=== PATIENT | female | born 1975 | race Caucasian/White ===

== ENCOUNTER → 2018-05-31 08:22 | Outpatient (CLI) | payer OTHER, SELFPAY ==
[2018-05-31 08:26] LABS: Microscopic, Urine URINE MICROSCOPIC (MICROSCOPIC)
[2018-05-31 08:45] LABS: Appearance,Urine CLEAR (Clear); Bilirubin,Urine Negative (Negative); Blood, Urine 3+ (Negative); Color,Urine YELLOW (Yellow); Glucose,Urine (UA) Negative (Negative); Ketones,Urine Negative (Negative); Leukocyte Esterase,Urine 1+ (Negative); Nitrate,Urine Negative (Negative); PH,Urine 7.5 (5.0-8.5); Protein,Urine Negative (Negative); Urobilinogen,Urine 0.2 EU/dl (0.2)
[2018-05-31 09:05] LABS: Bacteria,Urine 2+ /lpf; RBC,Urine Occasional #/hpf (0-3); Squamous Epithelial Cell,Urine 20-50 #/hpf (0-5)
[2018-05-31 09:35] LABS: Alanine Aminotransferase 28 U/L (12-78); Albumin Level 3.6 gm/dL (3.4-5.0); Albumin/Globulin Ratio 1.2 (1.1-1.8); Alkaline Phosphatase 50 U/L (46-116); Anion Gap 14.2 mEq/L (5-15); Aspartate Amino Transferase 11 U/L (15-37); Bilirubin,Total 0.8 mg/dL (0.2-1.0); Blood Urea Nitrogen 7 mg/dL (7-18); Calcium 8.5 mg/dL (8.5-10.1); Carbon Dioxide 26 mmol/L (21.0-32.0); Chloride 106 mmol/L (98-107); Chol/HDL Ratio 3.2 (1-3.5); Cholesterol 187 mg/dL (140-200); Creatinine,Serum 0.63 mg/dL (0.55-1.02); Estimated Glomerular Filt Rate 104 ml/min (>60); GFR (African American) 126 ML/MIN (>60); Globulin 3.1 gm/dl (1.3-3.2); Glucose 96 mg/dL (74-106); HDL Cholesterol 58 mg/dL (29-89); LDL Cholesterol 109 mg/dL (0-130); Potassium 4.2 mmoL/L (3.5-5.1); Sodium 142 mmol/L (136-145); Total Protein,Serum 6.7 gm/dL (6.4-8.2); Triglycerides 102 mg/dL (30-200); Uric Acid 4.2 mg/dL (2.6-7.2); VLDL Cholesterol 20 mg/dL (0-40)
[2018-06-01 09:21] LABS: Creatinine, Urine 62.4 mg/dL (Not Estab.); Microalbumin, Urine 17.7 ug/mL (Not Estab.)
== END ==
PROVIDERS: Visit Provider Family Medicine
DX: E78.00 Pure hypercholesterolemia, unspecified (principal); I10 Essential (primary) hypertension
CPT/HCPCS: 36415; 80053; 80061; 81001; 82043; 82570; 84550; 87086; 93005

== ENCOUNTER → 2018-06-06 10:10 | Outpatient (CLI) | payer OTHER, SELFPAY ==
[2018-06-06 10:13] LABS: Microscopic, Urine URINE MICROSCOPIC (MICROSCOPIC)
[2018-06-06 10:54] LABS: Appearance,Urine CLEAR (Clear); Bilirubin,Urine Negative (Negative); Blood, Urine Negative (Negative); Color,Urine STRAW (Yellow); Glucose,Urine (UA) Negative (Negative); Ketones,Urine Negative (Negative); Leukocyte Esterase,Urine Negative (Negative); Nitrate,Urine Negative (Negative); PH,Urine 6.5 (5.0-8.5); Protein,Urine Negative (Negative); Specific Gravity, Urine <= 1.005 (1.005-1.030); Urobilinogen,Urine 0.2 EU/dl (0.2)
[2018-06-06 11:23] LABS: Bacteria,Urine 1+ /lpf
== END ==
PROVIDERS: Visit Provider Family Medicine
DX: R31.9 Hematuria, unspecified (principal)
CPT/HCPCS: 81001; 87086

== ENCOUNTER → 2019-03-06 08:49 | Outpatient (CLI) | payer OTHER, SELFPAY ==
--- NOTE | 2019-03-06 08:55 | XR_ITS ---
XR knee RT 2V HISTORY: ITS.REASON: RT KNEE PAIN ORDERING PHYSICIAN: Oswald Boucher MD PATIENT AGE: 43 years COMPARISON: None FINDINGS There are mild osteoarthritic changes of all 3 compartments. No fracture or dislocation. No lytic or blastic change. IMPRESSION: Mild osteoarthritis
== END ==
PROVIDERS: PCP Family Medicine; Visit Provider Anesthesiology
DX: M25.561 Pain in right knee (principal)
CPT/HCPCS: 73560

== ENCOUNTER → 2019-07-24 10:03 | Outpatient (CLI) | payer OTHER, SELFPAY ==
--- NOTE | 2019-07-24 10:04 | MM_ITS ---
PROCEDURE: MM DIG SCREENING MAMM BI W/CAD Patient Age:43Y CLINICAL INDICATION: routine screening mammogram 43-year-old. No hormones. No new complaints. Noncontributory family history COMPARISON: Baseline mammogram with No exams were available for comparison TECHNIQUE: Standard CC and MLO images were obtained. R2 CAD reviewed. FINDINGS: Baseline no previous studies for comparison . Lower density breast with utnd-bi-iykmjvux fibroglandular elements most evident towards upper-outer quadrant. No dominant or suspicious mass. No suspicious calcifications. CAD computer review highlights no significant areas of concern either. Bilateral follow-up 1 year recommended IMPRESSION: Baseline mammogram. No areas of concern Bilateral follow-up 1 year recommended BI-RAD Category: 1 Negative FOLLOW-UP: 1YR 1 Year Follow-up (A letter has been sent to the patient regarding results of the study.) Dictated by: Med Maldonado MD 07/25/2019 08:54 Electronically signed by Med Maldonado MD in [place] 07/25/2019 08:54
== END ==
PROVIDERS: PCP Family Medicine; Visit Provider Nurse Practitioner Obstetrics & Gynecology
DX: Z12.31 Encounter for screening mammogram for malignant neoplasm of breast (principal)
CPT/HCPCS: 77067

== ENCOUNTER → 2019-09-01 09:39 | Outpatient (POV) | payer OTHER, SELFPAY | PROVIDERS: PCP Family Medicine; Visit Provider Nurse Practitioner Family | DX: Z00.00 Encounter for general adult medical examination without abnormal findings (principal) ==

== ENCOUNTER → 2020-05-12 08:15 | Outpatient (CLI) | payer OTHER, SELFPAY ==
[2020-05-12 12:56] LABS: Alanine Aminotransferase 17 U/L (12-78); Albumin/Globulin Ratio 1.4 (1.1-1.8); Alkaline Phosphatase 52 U/L (38-126); Anion Gap 11.5 mEq/L (5-15); Aspartate Amino Transferase 20 U/L (14-36); Bilirubin,Total 0.7 mg/dl (0.2-1.3); Blood Urea Nitrogen 11 mg/dl (7-17); Calcium 9.3 mg/dl (8.4-10.2); Carbon Dioxide 29 mmol/L (22.0-30.0); Chloride 103 mmol/L (98-107); Chol/HDL Ratio 3.4 (1-3.5); Cholesterol 232 mg/dl (140-200); Estimated Glomerular Filt Rate 109 ml/min (>60); GFR (African American) 132 ML/MIN (>60); Globulin 2.8 g/dL (1.3-3.2); Glucose 98 mg/dl (74-100); HDL Cholesterol 69 mg/dl (40-60); Potassium 4.5 mmoL/L (3.5-5.1); Sodium 139 mmol/L (136-145); Total Protein,Serum 6.8 g/dl (6.3-8.2); Triglycerides 112 mg/dl (30-150); VLDL Cholesterol 22 mg/dL (0-40)
[2020-05-12 13:08] LABS: Direct LDL Cholesterol 146.68 mg/dL (100-129)
[2020-05-12 13:29] LABS: Thyroid Stimulating Hormone 1.73 uIU/mL (0.465-4.68)
== END ==
PROVIDERS: Visit Provider Physician Assistant
DX: I10 Essential (primary) hypertension (principal); E78.00 Pure hypercholesterolemia, unspecified; Z13.29 Encounter for screening for other suspected endocrine disorder
CPT/HCPCS: 36415; 80053; 80061; 84443

== ENCOUNTER 2020-07-23 23:01 | Emergency (ER) | payer OTHER, SELFPAY ==
[2020-07-23 23:07] VITALS: BP 169/100; PULSE 92; RESP 22; O2SAT 100; BMI 37.1; BMI 39.4
--- NOTE | 2020-07-23 23:08 | XR_ITS ---
PROCEDURE: XR SHOULDER LT MIN 2V Referring Doctor: Rm Bonds Patient Age:44Y CLINICAL INDICATION: injury fall with injury at left shoulder. Left shoulder pain. COMPARISON: CR SHOU3L [id number] VIEWS from 06/14/2017 CR SHOU1L [id number] VIEW-LT from 06/14/2017 FINDINGS: Anterior dislocation left shoulder appears to be subcoracoid in character. No fracture evident. Humeral head and neck seem to be intact with upper normal widith AC joint Bones well mineralized. Upper left ribs and clavicle are intact with no fracture otherwise scapula intact IMPRESSION: Anterior dislocation left shoulder; with no fracture evident. Subcoracoid anterior dislocation Dictated by: Med Maldonado MD 07/24/2020 13:44 Med Maldonado MD in [place] 07/24/2020 13:44
[2020-07-23 23:23] VITALS: BP 154/79; PULSE 85; RESP 16; O2SAT 98
[2020-07-23 23:26] VITALS: BP 121/78; PULSE 82; RESP 16; O2SAT 96
[2020-07-23 23:34] VITALS: BP 121/78; PULSE 87; RESP 16; O2SAT 95
--- NOTE | 2020-07-23 23:35 | XR_ITS ---
PROCEDURE: XR SHOULDER LT 1V Referring Doctor: Rm Bonds Patient Age:44Y CLINICAL INDICATION: post reduction left shoulder dislocation COMPARISON: CR SHOU3L [id number] VIEWS from 06/14/2017 CR SHOU1L [id number] VIEW-LT from 06/14/2017 CR XR SHOULDER LT MIN 2V from 07/23/2020 FINDINGS: Single post reduction portable image left shoulder reveals that on this single view the humeral head appears to been reduced and appears to articulate with the glenoid on this single view. Two views would provide highest degree of certainty but on this single view glenohumeral relationships appear to be appropriate and reestablished but AC joint appears intact upper normal with. Humeral head and neck unremarkable on this limited single view. No fracture evident on this view the On this limited images bibasilar atelectasis with low lung volumes.. packaging engineer leads in place. Nasal O2 in place IMPRESSION: Single post reduction image of supports the dislocation was reduced . On this single view the glenohumeral relationships would appear to have been appear reestablished Dictated by: Med Maldonado MD 07/24/2020 13:48 Med Maldonado MD in [place] 07/24/2020 13:48
--- NOTE | 2020-07-23 23:39 | HMH.EDUPEXT ---
ED Disposition Clinical Impression: Dislocation of shoulder region Qualifiers: Encounter type: initial encounter Laterality: left Qualified Code(s): S43.005A - Unspecified dislocation of left shoulder joint, initial encounter Disposition: Home, Self-Care Condition on Discharge: Good Instructions: DI for Shoulder Dislocation Additional Instructions: ice and rom as harmoyn and callpcp and ortho Referrals: Neri Pellteier MD [Primary Care Provider] - - Critical Care Critical Care Time: No Attestation: On 07/23/20, the high probability of a clinically significant, sudden or life threatening deterioration of the following system(s) required my full and direct attention, intervention and personal management. The time I documented below is in addition to time spent performing reported procedures but includes the following listed in this critical care notation. Medical Decision Making - Medical Records Medical records reviewed: Yes: I reviewed the patient's medical records. - Khanh Inquiry Pt receiving controlled substance: No Vital Signs: 07/23/20 23:07 Pulse Rate [Right Brachial] 92 H Respiratory Rate 22 Blood Pressure [Right Arm] 169/100 H Blood Pressure Mean [Right Arm] 123 Blood Pressure Source [Right Arm] Automatic Cuff Blood Pressure Position [Right Arm] Sitting 02 Sat by Pulse Oximetry 100 Oxygen Delivery Method Room Air Orders (Tests/Meds): ED MEDICATIONS Discontinued Medications Generic Name Dose Route Start Last Admin Trade Name Jasonq PRN Reason Stop Dose Admin Fentanyl Citrate 50 mcg 07/23/20 23:22 Fentanyl 250mcg/5ml Vial IV 07/23/20 23:23 ONCE ONE Fentanyl Citrate 25 mcg 07/23/20 23:25 Fentanyl 250mcg/5ml Vial IV 07/23/20 23:26 ONCE ONE Fentanyl Citrate 25 mcg 07/23/20 23:26 Fentanyl 250mcg/5ml Vial IV 07/23/20 23:27 ONCE ONE Midazolam HCl 2 mg 07/23/20 23:23 Midazolam 2mg/2ml Vial IV 07/23/20 23:24 ONCE ONE ORDERS Category Date Time Status XR shoulder LT 1V Stat Exams 07/23/20 23:35 Taken XR shoulder LT min 2V Stat Exams 07/23/20 23:08 Taken - Radiology Data #1 Image(s): Shoulder Image Reviewed: Yes I reviewed the patient's radiology image Preliminary Findings: Abnormal (dislocation ) Upper Extremity HPI - General Chief Complaint: Extremity Injury, Upper Stated Complaint: AM [id number] l ARM Time Seen by Provider: 07/23/20 23:15 Mode of Arrival: Family Vehicle Source of Information: Patient, Spouse, Medical Record Limitations: No Limitations Description of Symptoms (Recalled from ER Triage Doc. by RN): possible shoulder dislocation from a fall earlier this evening; no other injury - History of Present Illness HPI narrative: fall with lt shoulder injury- hx of dislocation MD complaint: injury to: left, shoulder Onset (ago): hour(s) Other Extremity Injury: Left: shoulder Other injuries: none Handedness: left Place: home Severity: moderate Context: fall Associated symptoms: denies other symptoms - Related Data Home Medications Medication Instructions Recorded Confirmed duloxetine 60 mg capsule,delayed PO #90 cap 07/03/19 07/03/19 release irbesartan 150 mg tablet PO #90 tab 07/03/19 07/03/19 ropinirole 0.25 mg tablet PO #90 tab 07/03/19 07/03/19 Allergies Allergy/AdvReac Type Severity Reaction Status Date / Time No Known Drug Allergies Allergy Unknown Verified 07/03/19 09:05 [NO KNOWN DRUG ALLERGIES] [facility] History - Hepatitis A Screen Drug use history?: No High risk sexual behaviors?: No History of sexually transmitted infection?: No Currently employed?: No Childcare worker?: No Do you have indoor plumbing?: Yes Do you have electricity?: Yes Attestation statement:: This patient has been screened for Hepatitis A risk factors. I have reviewed the patient's past medical history: Yes Medical History: Reports:: Depression, Hypertension Other Medical Histo
[2020-07-23 23:48] VITALS: BP 120/78; PULSE 79; RESP 16; TEMP 36.8; O2SAT 98
== END 2020-07-23 23:53 | disposition home or self-care (01) ==
PROVIDERS: Emergency Provider Emergency Medicine; PCP Family Medicine
DX: S43.005A Unspecified dislocation of left shoulder joint, initial encounter (principal); W01.0XXA Fall on same level from slipping, tripping and stumbling without subsequent striking against object, initial encounter; Y92.019 Unspecified place in single-family (private) house as the place of occurrence of the external cause; F33.1 Major depressive disorder, recurrent, moderate; I10 Essential (primary) hypertension; Z79.899 Other long term (current) drug therapy
CPT/HCPCS: 23650; 73020; 73030; 96365; 96375; 99284

== ENCOUNTER → 2021-01-21 07:38 | Outpatient (CLI) | payer OTHER, SELFPAY ==
[2021-01-21 07:55] LABS: Basophils % 0.7 % (0.1-2.0); Eosinophils # 0.1 K/mm3 (0.0-0.4); Eosinophils % 1.2 % (0.1-12.0); Hematocrit 36.4 % (37.0-47.0); Hemoglobin 11.7 g/dL (12.2-16.2); Lymphocytes # 1.6 K/mm3 (0.7-4.5); Lymphocytes % 28.7 % (10-50); Mean Corpuscular HGB Conc 32.2 g/dL (31.8-35.4); Mean Corpuscular Hemoglobin 26.3 pg (27.0-31.2); Mean Corpuscular Volume 81.7 fl (81-99); Mean Platelet Volume 7.8 fl (7.4-10.4); Monocytes # 0.3 K/mm3 (0.1-1.0); Monocytes % 4.5 % (1.7-9.3); Neutrophils # 3.5 K/mm3 (1.8-7.8); Neutrophils % 64.8 % (37.0-80.0); Platelet Count 364 K/mm3 (142-424); Red Blood Count 4.45 M/mm3 (4.20-5.40); Red Cell Distribution Width 14.8 % (11.5-17.5); White Blood Count 5.5 K/mm3 (4.8-10.8)
[2021-01-21 08:38] LABS: Alanine Aminotransferase 14 U/L (12-78); Albumin Level 4.1 g/dl (3.5-5.0); Albumin/Globulin Ratio 1.5 (1.1-1.8); Alkaline Phosphatase 58 U/L (38-126); Anion Gap 12.4 mEq/L (5-15); Aspartate Amino Transferase 19 U/L (14-36); Bilirubin,Total 0.9 mg/dl (0.2-1.3); Blood Urea Nitrogen 13 mg/dl (7-17); Calcium 9.3 mg/dl (8.4-10.2); Carbon Dioxide 25 mmol/L (22.0-30.0); Chloride 106 mmol/L (98-107); Chol/HDL Ratio 3.8 (1-3.5); Cholesterol 198 mg/dl (140-200); Estimated Glomerular Filt Rate 91 ml/min (>60); GFR (African American) 110 ML/MIN (>60); Globulin 2.8 g/dL (1.3-3.2); Glucose 86 mg/dl (74-100); HDL Cholesterol 52 mg/dl (40-60); Potassium 4.4 mmoL/L (3.5-5.1); Sodium 139 mmol/L (136-145); Total Protein,Serum 6.9 g/dl (6.3-8.2); Triglycerides 79 mg/dl (30-150); VLDL Cholesterol 16 mg/dL (0-40)
[2021-01-21 08:49] LABS: Direct LDL Cholesterol 126.57 mg/dL (100-129)
[2021-01-21 09:09] LABS: Thyroid Stimulating Hormone 1.26 uIU/mL (0.465-4.68)
[2021-01-21 09:52] LABS: Folate 5.51 ng/mL; Vitamin B12 > 1000 pg/mL (239-931)
[2021-01-21 09:58] LABS: Iron 49 ug/dL (37-170)
[2021-01-28 06:16] LABS: 1,25 Dihydroxy Vitamin D 39 pg/mL (.); 1,25-Dihydroxy, Vitamin D-2 <10 pg/mL (.); 1,25-Dihydroxy, Vitamin D-3 36 pg/mL (.)
== END ==
PROVIDERS: Visit Provider Nurse Practitioner Family
DX: E78.5 Hyperlipidemia, unspecified (principal); E55.9 Vitamin D deficiency, unspecified; L65.9 Nonscarring hair loss, unspecified
CPT/HCPCS: 36415; 80053; 80061; 82607; 82652; 82746; 83540; 84443; 85025

== ENCOUNTER → 2021-06-09 08:58 | Outpatient (CLI) | payer OTHER, SELFPAY ==
[2021-06-09 08:59] LABS: Microscopic, Urine URINE MICROSCOPIC (MICROSCOPIC)
[2021-06-09 09:19] LABS: Appearance,Urine CLEAR (Clear); Bilirubin,Urine Negative (Negative); Blood, Urine TRACE-I (Negative); Color,Urine YELLOW (Yellow); Glucose,Urine (UA) Negative (Negative); Ketones,Urine Negative (Negative); Leukocyte Esterase,Urine 1+ (Negative); Nitrate,Urine Negative (Negative); Protein,Urine Negative (Negative); Urobilinogen,Urine 0.2 EU/dl (0.2)
[2021-06-09 09:27] LABS: Bacteria,Urine Trace /lpf
== END ==
PROVIDERS: Visit Provider Clinical Nurse Specialist Family Health
DX: R30.0 Dysuria (principal)
CPT/HCPCS: 81001; 87086

== ENCOUNTER → 2021-06-28 09:49 | Outpatient (POV) | payer OTHER, SELFPAY | PROVIDERS: Visit Provider Dermatology | DX: Z00.00 Encounter for general adult medical examination without abnormal findings (principal) ==

== ENCOUNTER → 2021-08-19 10:57 | Outpatient (CLI) | payer OTHER, SELFPAY ==
[2021-08-19 10:59] LABS: Microscopic, Urine URINE MICROSCOPIC (MICROSCOPIC)
[2021-08-19 11:30] LABS: Appearance,Urine CLEAR (Clear); Bilirubin,Urine Negative (Negative); Blood, Urine 3+ (Negative); Color,Urine YELLOW (Yellow); Glucose,Urine (UA) Negative (Negative); Ketones,Urine Negative (Negative); Leukocyte Esterase,Urine 1+ (Negative); Nitrate,Urine Negative (Negative); Protein,Urine Negative (Negative); Urobilinogen,Urine 0.2 EU/dl (0.2)
[2021-08-19 12:09] LABS: Bacteria,Urine 1+ /lpf
== END ==
PROVIDERS: Visit Provider Clinical Nurse Specialist Family Health
DX: N39.0 Urinary tract infection, site not specified (principal)
CPT/HCPCS: 81001; 87086

== ENCOUNTER → 2022-01-17 12:56 | Outpatient (CLI) | payer OTHER, SELFPAY | PROVIDERS: PCP Family Medicine; Visit Provider Student in an Organized Health Care Education/Training Program | DX: M25.561 Pain in right knee (principal) ==

== ENCOUNTER → 2022-02-01 08:00 | Outpatient (CLI) | payer OTHER, SELFPAY ==
--- NOTE | 2022-02-01 08:06 | MM_ITS ---
PROCEDURE INFORMATION: Exam: MG Bilateral Screening 3D Mammography Exam date and time: 02/01/2022 8:02 AM Age: 46 years old Clinical indication: Screening examination TECHNIQUE: Imaging protocol: Bilateral Screening tomosynthesis and 2D mammography including computer-aided detection (CAD) when performed. COMPARISON: MG MM DIG SCREENING MAMM BI W/CAD 07/24/2019 10:25 AM FINDINGS: MAMMOGRAPHY: Breast composition: There are scattered areas of fibroglandular density. Mass: None. Architectural distortion: No new or suspicious architectural distortion. Calcifications: No new or suspicious calcifications are present Asymmetric density: No new or suspicious asymmetric density is present Skin thickening: None. Axillary adenopathy: None. IMPRESSION: No mammographic evidence of malignancy. Recommend annual screening mammography unless otherwise clinically indicated. ASSESSMENT: BI-RADS category 1: Negative
== END ==
PROVIDERS: PCP Family Medicine; Visit Provider Physician Assistant
DX: Z12.31 Encounter for screening mammogram for malignant neoplasm of breast (principal)
CPT/HCPCS: 77063; 77067

== ENCOUNTER → 2022-10-17 09:08 | Outpatient (CLI) | payer OTHER, SELFPAY ==
[2022-10-17 09:28] LABS: Basophils # 0.1 K/mm3 (0-0.2); Basophils % 0.6 % (0.1-2.0); Eosinophils # 0.2 K/mm3 (0.0-0.4); Eosinophils % 1.4 % (0.1-12.0); Hematocrit 43.7 % (37.0-47.0); Hemoglobin 14.3 g/dL (12.2-16.2); Lymphocytes # 2.1 K/mm3 (0.7-4.5); Lymphocytes % 18.5 % (10-50); Mean Corpuscular HGB Conc 32.8 g/dL (31.8-35.4); Mean Corpuscular Hemoglobin 29.5 pg (27.0-31.2); Mean Platelet Volume 7.9 fl (7.4-10.4); Monocytes # 0.4 K/mm3 (0.1-1.0); Neutrophils # 8.8 K/mm3 (1.8-7.8); Neutrophils % 76.4 % (37.0-80.0); Platelet Count 406 K/mm3 (142-424); Red Blood Count 4.85 M/mm3 (4.20-5.40); Red Cell Distribution Width 13.1 % (11.5-17.5); White Blood Count 11.5 K/mm3 (4.8-10.8)
[2022-10-17 10:16] LABS: Chloride 102 mmol/L (98-107); Potassium 4.3 mmoL/L (3.5-5.1); Sodium 136 mmol/L (136-145)
[2022-10-17 10:18] LABS: Blood Urea Nitrogen 5 mg/dl (7-17); Estimated Glomerular Filt Rate 90 ml/min (>60); GFR (African American) 109 ML/MIN (>60)
[2022-10-17 10:19] LABS: Alanine Aminotransferase 22 U/L (12-78); Albumin Level 4.1 g/dl (3.5-5.0); Albumin/Globulin Ratio 1.6 (1.1-1.8); Alkaline Phosphatase 46 U/L (38-126); Anion Gap 13.3 mEq/L (5-15); Aspartate Amino Transferase 23 U/L (14-36); Bilirubin,Total 0.9 mg/dl (0.2-1.3); Calcium 9.1 mg/dl (8.4-10.2); Carbon Dioxide 25 mmol/L (22.0-30.0); Globulin 2.6 g/dL (1.3-3.2); Glucose 98 mg/dl (74-100); Total Protein,Serum 6.7 g/dl (6.3-8.2)
[2022-10-17 10:39] LABS: HCG,Quantitative < 2 mIU/ml (0-5.42)
== END ==
PROVIDERS: PCP Family Medicine; Visit Provider Nurse Practitioner Obstetrics & Gynecology
DX: Z87.42 Personal history of other diseases of the female genital tract (principal); N92.0 Excessive and frequent menstruation with regular cycle
CPT/HCPCS: 36415; 80053; 84702; 85025

== ENCOUNTER 2022-10-18 05:59 | Day surgery (SDC) | payer OTHER, SELFPAY ==
[2022-10-12 11:19] VITALS: BMI 34.9
[2022-10-18] VITALS (11 sets, daily range): BP systolic 106–154; BP diastolic 33–93; PULSE 55–90; RESP 16–18; TEMP 36.4–36.7; O2SAT 90–98
--- NOTE | 2022-10-18 07:44 | P.PN_ITS ---
[facility] Disclaimer: The information contained in this section may have been updated after the patient was seen, as this information can be updated by other users. Medical History History of gastroesophageal reflux (GERD) Hypertension Surgical History No significant past surgical history Family History Mother Diabetes Heart attack Stroke Hyperlipidemia Hypertension Social History Smoking Status: Never smoker alcohol intake: never substance use type: denies use current occupational status: employed Travel in the last 8 weeks: None [facility] Anesthesia Checklist Patient Identification Patient Identification: Arm Band Structural Data Admitted From: Home Planned Operative Procedure/s: Hysteroscopy, D&C, Novasure Ablation Consent for Planned Operative Procedure(s) Verified: Yes Verified Documents: Surgical Consent and History and Physical NPO Status Verified Time NPO: 00:00 Additional verifications Anesthesia Reactions: No Hx Blood Transfusions: No Blood Transfusion Reaction: No Airway Assessment C-Spine Mobility Assessed: Yes TMJ Mobility Assessed: Yes Dentition: Good Dentition Neurological Assessment Level of Consciousness: Awake and Alert Anesthesia Plan Anesthesia Risk discussed: Yes Anesthesia Plan: Verified ASA Class: II Anesthesia Type: General
--- NOTE | 2022-10-18 08:11 | EXP.ANES.I ---
[facility] Anesthesia Record Part I Anesthesia Record I Intake, IV Amount: 900 Estimated blood loss (mL): 100 Urine output (mL): 0 Blood Products used (#): none Blood Pressure: 154/93 SaO2: 92 Pulse Rate: 81 Respiratory Rate: 16 Temperature: 98 F Patient is:: Drowsy and Stable Stable to PACU at:: 08:05
--- NOTE | 2022-10-18 08:16 | EXP.OP.NOTE ---
Date of procedure: 10/18/22 Pre-op Diagnosis:: Menorrhagia Post-op Diagnosis:: Menorrhagia Procedure performed:: Hysteroscopy, dilation and curettage, NovaSure ablation Surgeon:: Darin Best MD BACTERIOLOGY TECHNICIAN:: Cristobal Dela Cruz Anesthesia: LMA Estimated blood loss (mL): 100 Clinical Note:: She is a 46-year-old lady who complains of extremely heavy periods.The risks and benefits of surgery were discussed with the patient prior to surgery. Operative findings:: She had an anteverted somewhat bulky uterus. The uterus sounded to 9 cm. The endometrial cavity length was 6 cm. The width was 4.5 cm. Operative note:: She was taken to the operating room where LMA anesthesia was found be adequate. She was prepped and draped in the normal sterile fashion in the lithotomy position. A weighted speculum was placed in the vagina and the anterior lip of the cervix was grasped with a tenaculum. The cervix was then dilated to approximately 6 mm. I then inserted a hysteroscope into the uterine cavity and the findings were as previously dictated. I then performed a gentle curettage with a medium curette. I then sounded the uterus and determine the length of the uterus. I then inserted the NovaSure device and determine the width of the endometrial cavity. The length of the cavity was 6 cm and the width was 4.5 cm. This was placed into the NovaSure device. I then ran the device through its program. On the first device there was a vacuum leak so I placed a second device within the endometrial cavity and ran this through its program. It required me to use tenaculums to seal her patulous cervix. I further inspected the endometrial cavity and was found to be completely charred. I then injected 30 cc of 0.5% ropivacaine at the 3:00, 5:00, 7:00, and 9:00 positions of the cervix. She tolerated procedure well and was taken to the recovery room in excellent condition. All sponge and instrument counts were correct. The estimated blood loss was less than 100 cc. Condition: stable Disposition: PACU Specimens:: Endometrial curettings Complications:: None
--- NOTE | 2022-10-18 08:48 | SUR.PHASEI ---
Pt taken to post op, bedside report given to cSott Bai RN. Pt left in stable condition, no complaints voiced, sitting up drinking water. Stretcher left in lowest position w/ wheels locked.
--- NOTE | 2022-10-18 11:25 | EXP.ANES.II ---
[facility] Anesthesia Record Part II Anesthesia Record Part II Discharge Time: 08:35 Destination: Surgical Day Care (OP Surgery) PACU nurse assessment reviewed?: Yes Patient Condition:: Good Anesthesia Complications:: None Swallowing reflex intact?: Yes Cyanosis?: No Blood Pressure: 115/85 Pulse Rate: 71 Temperature: 98 F Mental Status: Alert & Oriented Pain level:: 0 Nausea and/or vomitting:: None Intake, IV Amount: 0
== END 2022-10-18 09:20 | disposition home or self-care (01) ==
PROVIDERS: PCP Family Medicine; Visit Provider Nurse Practitioner Obstetrics & Gynecology
PROC: 0U5B8ZZ Destruction of Endometrium, Via Natural or Artificial Opening Endoscopic (ICD-10-PCS; CPT 58563; principal; 2022-10-18 07:30)
DX: N92.0 Excessive and frequent menstruation with regular cycle (principal); Z79.899 Other long term (current) drug therapy; N93.9 Abnormal uterine and vaginal bleeding, unspecified
CPT/HCPCS: 58563; 96374; J2405

== ENCOUNTER → 2023-02-12 09:14 | Outpatient (CLI) | payer OTHER, SELFPAY ==
[2023-02-12 10:36] LABS: Chloride 104 mmol/L (98-107); Sodium 137 mmol/L (136-145)
[2023-02-12 10:37] LABS: Potassium 4.2 mmoL/L (3.5-5.1)
[2023-02-12 10:39] LABS: Alanine Aminotransferase 19 U/L (12-78); Albumin Level 3.9 g/dl (3.5-5.0); Albumin/Globulin Ratio 1.6 (1.1-1.8); Alkaline Phosphatase 38 U/L (38-126); Anion Gap 10.2 mEq/L (5-15); Aspartate Amino Transferase 23 U/L (14-36); Blood Urea Nitrogen 5 mg/dl (7-17); Carbon Dioxide 27 mmol/L (22.0-30.0); Cholesterol 199 mg/dl (140-200); Estimated Glomerular Filt Rate 108 ml/min (>60); GFR (African American) 130 ML/MIN (>60); Globulin 2.5 g/dL (1.3-3.2); Total Protein,Serum 6.4 g/dl (6.3-8.2); Triglycerides 71 mg/dl (30-150); VLDL Cholesterol 14 mg/dL (0-40)
[2023-02-12 10:40] LABS: Calcium 8.5 mg/dl (8.4-10.2); Chol/HDL Ratio 3.3 (1-3.5); Glucose 74 mg/dl (74-100); HDL Cholesterol 61 mg/dl (40-60)
[2023-02-12 10:57] LABS: 25-OH Vitamin D, Total 27.2 ng/mL (30-100)
[2023-02-12 11:11] LABS: Thyroid Stimulating Hormone 0.99 uIU/mL (0.465-4.68)
== END ==
PROVIDERS: PCP Physician Assistant; Visit Provider Physician Assistant
DX: I10 Essential (primary) hypertension (principal); E78.5 Hyperlipidemia, unspecified; E55.9 Vitamin D deficiency, unspecified; L65.9 Nonscarring hair loss, unspecified
CPT/HCPCS: 36415; 80053; 80061; 82306; 84443

== ENCOUNTER → 2023-05-19 12:50 | Outpatient (CLI) | payer OTHER, SELFPAY ==
[2023-05-19 12:55] LABS: Microscopic, Urine URINE MICROSCOPIC (MICROSCOPIC)
[2023-05-19 13:06] LABS: Appearance,Urine CLEAR (Clear); Bilirubin,Urine Negative (Negative); Blood, Urine 2+ (Negative); Color,Urine ORANGE (Yellow); Glucose,Urine (UA) TRACE (Negative); Ketones,Urine Negative (Negative); Leukocyte Esterase,Urine 1+ (Negative); Nitrate,Urine POSITIVE (Negative); Protein,Urine Negative (Negative); Specific Gravity, Urine <= 1.005 (1.005-1.030)
[2023-05-19 13:09] LABS: Bacteria,Urine 1+ /lpf; RBC,Urine 20-50 #/hpf (0-3)
== END ==
PROVIDERS: Nurse Practitioner Family; PCP Family Medicine; Visit Provider Anesthesiology
DX: N39.0 Urinary tract infection, site not specified (principal); B96.29 Other Escherichia coli [E. coli] as the cause of diseases classified elsewhere
CPT/HCPCS: 81001; 87086; 87088; 87186

== ENCOUNTER 2024-01-11 09:57 | Outpatient (CLI) | payer OTHER, SELFPAY ==
[2024-01-11 10:14] LABS: Basophils # 0.1 K/mm3 (0-0.2); Basophils % 1.1 % (0.1-2.0); Eosinophils # 0.1 K/mm3 (0.0-0.4); Hematocrit 42.6 % (37.0-47.0); Hemoglobin 14.1 g/dL (12.2-16.2); Lymphocytes # 1.6 K/mm3 (0.7-4.5); Lymphocytes % 23.2 % (10-50); Mean Corpuscular HGB Conc 33.1 g/dL (31.8-35.4); Mean Corpuscular Hemoglobin 31.2 pg (27.0-31.2); Mean Corpuscular Volume 94.4 fl (81-99); Mean Platelet Volume 7.7 fl (7.4-10.4); Monocytes # 0.2 K/mm3 (0.1-1.0); Monocytes % 2.9 % (1.7-9.3); Neutrophils % 71.8 % (37.0-80.0); Platelet Count 358 K/mm3 (142-424); Red Blood Count 4.52 M/mm3 (4.20-5.40); Red Cell Distribution Width 12.7 % (11.5-17.5)
[2024-01-11 10:28] LABS: Alanine Aminotransferase 15 U/L (12-78); Albumin Level 4.3 g/dl (3.5-5.0); Alkaline Phosphatase 34 U/L (38-126); Anion Gap 10.2 mEq/L (5-15); Aspartate Amino Transferase 20 U/L (14-36); Bilirubin,Total 1.1 mg/dl (0.2-1.3); Blood Urea Nitrogen 7 mg/dl (7-17); Calcium 9.4 mg/dl (8.4-10.2); Carbon Dioxide 27 mmol/L (22.0-30.0); Chloride 107 mmol/L (98-107); Chol/HDL Ratio 3.9 (1-3.5); Cholesterol 218 mg/dl (140-200); Estimated Glomerular Filt Rate 107 ml/min (>60); GFR (African American) 130 ML/MIN (>60); Globulin 2.2 g/dL (1.3-3.2); Glucose 92 mg/dl (74-100); HDL Cholesterol 56 mg/dl (40-60); Potassium 4.2 mmoL/L (3.5-5.1); Sodium 140 mmol/L (136-145); Total Protein,Serum 6.5 g/dl (6.3-8.2); Triglycerides 53 mg/dl (30-150); VLDL Cholesterol 11 mg/dL (0-40)
[2024-01-11 10:39] LABS: Direct LDL Cholesterol 119.99 mg/dL (100-129)
[2024-01-11 10:44] LABS: 25-OH Vitamin D, Total 39.5 ng/mL (30-100)
== END 2024-01-11 23:59 ==
LOC: LAB 09:57
PROVIDERS: PCP Family Medicine; Visit Provider Physician Assistant
DX: E78.00 Pure hypercholesterolemia, unspecified (principal); E55.9 Vitamin D deficiency, unspecified; I10 Essential (primary) hypertension; Z13.29 Encounter for screening for other suspected endocrine disorder; Z68.34 Body mass index [BMI] 34.0-34.9, adult
CPT/HCPCS: 36415; 80053; 80061; 82306; 84443; 85025